=== PATIENT | male | born 1945 | race Caucasian/White ===

== ENCOUNTER 2021-06-19 07:43 | Day surgery (SDC) | payer OTHER ==
[2021-06-19] VITALS (13 sets, daily range): BP systolic 83–120; BP diastolic 34–64
[~2021-06-19] VITALS: Ht 170.2 cm; Wt 65.5 kg
[2021-06-19] MEDS ORDERED: LORazepam 1 MG tablet PO ONE (09:10)
[2021-06-19 09:26] LABS: BASOPHILS # (AUTO) 0.1 X10'3 (0-0.2); BASOPHILS % (AUTO) 0.4 % (0-1); EOSINOPHILS # (AUTO) 2.8 X10'3 (0-0.9); EOSINOPHILS % (AUTO) 17.3 % (0-6); HEMATOCRIT 39.7 % (42.0-52.0); LYMPHOCYTES # (AUTO) 0.7 X10'3 (1.1-4.8); LYMPHOCYTES % (AUTO) 4.1 % (21-51); MEAN CORPUSCULAR HGB CONC 32.8 g/dL (33.0-36.5); MEAN CORPUSCULAR VOLUME 82.3 FL (78-98); MEAN PLATELET VOLUME 8.3 FL (7.4-10.4); MONOCYTES # (AUTO) 1.2 X10'3 (0-0.9); MONOCYTES % (AUTO) 7.4 % (2-12); NEUTROPHILS # (AUTO) 11.5 X10'3 (1.8-7.7); NEUTROPHILS % (AUTO) 70.8 % (42-75); PLATELET COUNT 367 X10'3 (140-440); RED BLOOD COUNT 4.83 X10'6 (4.70-6.10); WHITE BLOOD COUNT 16.2 X10'3 (4.5-11.0)
[2021-06-19] MEDS ORDERED: normal saline 1000ml 1,000 ML IV SCH (09:30)
[2021-06-19] MEDS ORDERED: GUAI200T5 (10:04)
[2021-06-19] MEDS ORDERED: OMEG-42 PO (10:04)
[2021-06-19] MEDS ORDERED: DOXA4TAB3 PO (10:04)
[2021-06-19] MEDS ORDERED: ALBUTEROL (10:04)
[2021-06-19] MEDS ORDERED: DULO-31 PO (10:04)
[2021-06-19] MEDS ORDERED: HYDR25TA4 PO (10:04)
[2021-06-19] MEDS ORDERED: DILT-117 PO (10:04)
[2021-06-19] MEDS ORDERED: NAPR-1166 PO (10:04)
[2021-06-19] MEDS ORDERED: ASPI81TA47 PO (10:04)
[2021-06-19] MEDS ORDERED: LIDOCAINE PATCH (10:04)
[2021-06-19] MEDS ORDERED: DICLOFENAC (10:04)
[2021-06-19] MEDS ORDERED: LOSA50TA3 PO (10:04)
[2021-06-19] MEDS ORDERED: FLUT1BLS13 (10:04)
[2021-06-19] MEDS ORDERED: MIRT-67 PO (10:04)
[2021-06-19] MEDS ORDERED: DOCU100C40 PO (10:04)
[2021-06-19] MEDS ORDERED: NITR0.4T48 SL (10:04)
[2021-06-19] MEDS ORDERED: HYDR-3972 PO (10:04)
[2021-06-19] MEDS ORDERED: CHOL20002 PO (10:04)
[2021-06-19] MEDS ORDERED: METH-797 PO (10:04)
[2021-06-19] MEDS ORDERED: DIAZ5TAB22 PO (10:04)
[2021-06-19] MEDS ORDERED: ACET-2006 PO (10:04)
[2021-06-19] MEDS ORDERED: FLO0.4C PO (10:11)
[2021-06-19] MEDS ORDERED: PRAZ2CAP2 PO (10:11)
[2021-06-19] MEDS ORDERED: POTA-208 PO (10:11)
[2021-06-19] MEDS ORDERED: ROSU5TAB12 PO (10:11)
[2021-06-19] MEDS ORDERED: PRAZ5CAP PO (10:11)
[2021-06-19] MEDS ORDERED: LOPE2TAB25 PO (10:14)
[2021-06-19] MEDS ORDERED: TRAZ-256 PO (10:14)
[2021-06-19] MEDS ORDERED: fentaNYL/PF 50MCG/1 ML 2ML syringe ONE (10:17)
[2021-06-19] MEDS ORDERED: midazolam 1 mg/ML 2ml injection ONE (10:17)
[2021-06-19] MEDS ORDERED: HYDROcodone/acetaminophen 5mg/325mg tablet PO PRN (11:20)
== END 2021-06-19 15:16 | disposition home or self-care (01) ==
LOC: SSTAY O 07:43
PROVIDERS: ATTEND Radiology Vascular & Interventional Radiology
DX: R91.8 Other nonspecific abnormal finding of lung field (principal); D02.21 Carcinoma in situ of right bronchus and lung; J44.9 Chronic obstructive pulmonary disease, unspecified; I10 Essential (primary) hypertension; I25.2 Old myocardial infarction; F17.210 Nicotine dependence, cigarettes, uncomplicated; Z79.899 Other long term (current) drug therapy; Z79.01 Long term (current) use of anticoagulants; Z20.822 Contact with and (suspected) exposure to COVID-19
CPT/HCPCS: 32408; 36415; 71045; 85025; 85610; 87635; C9803; J2250; J3010; 77012; 99152; 99153